=== PATIENT | female | born 1985 | race Two or more races ===

== ENCOUNTER 2023-02-20 20:13 | Emergency (ER) | payer OTHER ==
[~2023-02-20] VITALS: Ht 170.2 cm; Wt 73.0 kg
[2023-02-20 20:33] VITALS: O2SAT 99
[2023-02-20] MEDS ORDERED: IBUP-2029 MT (21:40)
[2023-02-20] MEDS ORDERED: KETOROLAC 60MG/2ML VIAL IM ONE (21:45)
[2023-02-20 22:19] VITALS: BP 134/89; PULSE 76; RESP 18; TEMP 98.8
== END 2023-02-20 22:20 | disposition home or self-care (01) ==
LOC: ER 21:54
DX: M79.10 Myalgia, unspecified site (principal); R09.81 Nasal congestion; Z20.822 Contact with and (suspected) exposure to COVID-19
CPT/HCPCS: 81025; 96372; 99283; 87426; J1885; C9803; Z7610

== ENCOUNTER 2023-04-04 05:23 | Emergency (ER) | payer OTHER ==
[~2023-04-04] VITALS: Ht 170.2 cm; Wt 64.8 kg
[~2023-04-04 05:23] MED LIST: IBUP-2029 MT
[2023-04-04 05:49] VITALS: O2SAT 98
[2023-04-04 06:31] LABS: BASOPHILS % 0.6 % (0.0-2.0); EOSINOPHILS % 0.7 % (0.0-5.0); HEMATOCRIT. 37.8 % (36.0-48.0); HEMOGLOBIN. 12.6 g/dL (12.0-16.0); LYMPHOCYTES % 20.4 % (20.0-50.0); MEAN CORPUSCULAR HEMOGLOBIN 26.9 pg (28.0-32.0); MEAN CORPUSCULAR HGB CONC 33.2 g/dL (31.0-37.0); MEAN CORPUSCULAR VOLUME 80.8 fL (81.0-99.0); MEAN PLATELET VOLUME 6.9 fl (7.4-10.4); MONOCYTES % 6.9 % (2.0-8.0); NEUTROPHILS % 71.4 % (40.0-76.0); PLATELET 402 x1000/uL (130-400); RED BLOOD CELL COUNT 4.68 mill/uL (4.2-5.4); WHITE BLOOD COUNT 6.1 x1000/uL (4.5-11.0)
[2023-04-04 06:44] LABS: CHLORIDE 102 mEq/L (98-107); INDEX HEMOLYSI 1 (1-3); INDEX ICTERIC 1 (1-4); INDEX LIPEMIC 1 (1-3); POTASSIUM 3.6 mEq/L (3.5-5.1); SODIUM 135 mEq/L (136-145)
[2023-04-04 06:53] LABS: ALANINE AMINOTRANSFERASE 38 IU/L (13-61); ALBUMIN 3.4 g/dL (3.4-5.0); ASPARTATE AMINOTRANSFERASE 28 IU/L (15-37); BILIRUBIN TOTAL 0.9 mg/dL (0.1-1.0); CALCIUM 8.4 mg/dL (8.5-10.1); CARBON DIOXIDE 27 mEq/L (21-32); CREATININE 0.7 mg/dL (0.6-1.3); GLUCOSE 91 mg/dL (70-105); PROTEIN TOTAL 7.5 g/dL (6.0-8.3); UREA NITROGEN BLOOD 12 mg/dL (7-21)
[2023-04-04 07:56] LABS: CLARITY URINE CLOUDY (CLEAR); COLOR URINE DARK YELLOW (YELLOW); GLUCOSE URINE NEGATIVE (NEGATIVE); KETONES URINE TRACE (NEGATIVE); LEUKOCYTE ESTERASE URINE NEGATIVE (NEGATIVE); NITRITE URINE NEGATIVE (NEGATIVE); OCCULT BLOOD URINE NEGATIVE (NEGATIVE); PROTEIN URINE TRACE (NEGATIVE); SPECIFIC GRAVITY URINE 1.021 (1.005-1.030)
[2023-04-04 08:00] LABS: BACTERIA URINE NONE SEEN; RBC URINE 0-2 /hpf (0-2); SQUAMOUS EPITHELIAL CELL URINE 3+ /lpf (RARE/1+); WBC URINE 0-2 /hpf (0-2); YEAST URINE NONE SEEN
[2023-04-04 08:16] LABS: MUCUS URINE 3+ /lpf (< = 2+)
[2023-04-04 09:57] VITALS: BP 124/78; PULSE 91; RESP 16; TEMP 97.7
== END 2023-04-04 09:58 | disposition home or self-care (01) ==
LOC: ER 05:23
DX: J06.9 Acute upper respiratory infection, unspecified (principal); M79.10 Myalgia, unspecified site
CPT/HCPCS: 36415; 80053; 81003; 81025; 85025; 99283

== ENCOUNTER 2024-04-09 18:15 | Emergency (ER) | payer BC, OTHER ==
[~2024-04-09] VITALS: Ht 170.2 cm; Wt 66.0 kg
[2024-04-09 18:21] VITALS: BP 139/89; PULSE 75; TEMP 97.9; O2SAT 100
[2024-04-09 19:17] LABS: BASOPHILS % 0.7 % (0.0-2.0); EOSINOPHILS % 3.1 % (0.0-5.0); HEMATOCRIT. 34.7 % (36.0-48.0); HEMOGLOBIN. 11.8 g/dL (12.0-16.0); LYMPHOCYTES % 24.8 % (20.0-50.0); MEAN CORPUSCULAR HEMOGLOBIN 29.3 pg (28.0-32.0); MEAN CORPUSCULAR VOLUME 86.2 fL (81.0-99.0); NEUTROPHILS % 65.4 % (40.0-76.0); PLATELET 384 x1000/uL (130-400); RED BLOOD CELL COUNT 4.03 mill/uL (4.2-5.4); RED CELL DISTRIBUTION WIDTH 14.9 % (11.6-14.6); WHITE BLOOD COUNT 6.8 x1000/uL (4.5-11.0)
[2024-04-09 19:23] LABS: CARBON DIOXIDE 28 mEq/L (21-32); CHLORIDE 105 mEq/L (98-107); POTASSIUM 3.5 mEq/L (3.5-5.1); SODIUM 139 mEq/L (136-145)
[2024-04-09 19:24] LABS: CALCIUM 9.1 mg/dL (8.7-10.4)
[2024-04-09 19:28] LABS: CREATININE 0.8 mg/dL (0.6-1.0)
[2024-04-09 19:29] LABS: GLUCOSE 89 mg/dL (70-105); HCG SCREEN NEGATIVE; UREA NITROGEN BLOOD 8 mg/dL (9-23)
[2024-04-09 19:30] LABS: ALANINE AMINOTRANSFERASE 17 IU/L (10-49); ASPARTATE AMINOTRANSFERASE 25 IU/L (<34)
[2024-04-09 19:31] LABS: BILIRUBIN TOTAL 0.4 mg/dL (0.1-1.0)
[2024-04-09 19:37] LABS: BILIRUBIN DIRECT < 0.1 mg/dL (<=3.0)
[2024-04-09] MEDS: KETOROLAC 15MG/ML VIAL IM NR (21:45)
[2024-04-09] MEDS: MAGNESIUM/ALUMINUM HYDROXIDE/SIMETHICONE 30ML UDC PO ONE (21:45)
[2024-04-09] MEDS: FAMOTIDINE 20MG TABLET PO ONE (21:45)
[2024-04-09] MEDS: ONDANSETRON 4MG ODT PO ONE (21:45)
[2024-04-09 22:35] VITALS: RESP 18
== END 2024-04-09 22:36 | disposition home or self-care (01) ==
LOC: ER 18:15
DX: B34.9 Viral infection, unspecified (principal); Z98.890 Other specified postprocedural states
CPT/HCPCS: 80076; 80048; 84703; 83690; 85025; 36415; 96372; 99284; Q0162; J1885; Z7610